=== PATIENT | female | born 1970 | race Caucasian/White ===

== ENCOUNTER → 2020-10-11 15:09 | Outpatient (BNVA) | payer OTHER, SELFPAY | PROVIDERS: PCP Nurse Practitioner Family; Referring Provider Dermatology; Visit Provider Podiatrist Foot & Ankle Surgery | DX: M79.671 Pain in right foot (principal) | CPT/HCPCS: 73630 ==

== ENCOUNTER 2022-11-03 06:56 | Outpatient (CLI) | payer OTHER, SELFPAY ==
--- NOTE | 2022-11-03 07:23 | US_ITS ---
WS: [id number] RIGHT UPPER QUADRANT ULTRASOUND HISTORY: EPIGASTRIC PAIN/RUQ ABDOMINAL PAIN COMPARISON: None available. Liver: 14.0 cm in length. Normal size liver. Hyperechoic mass towards the diaphragmatic surface of th e liver measures 1.3 x 1.4 x 1.4 cm. No increased vascularity. No additional masses. No bile duct dil atation. Portal Vein: Normal hepatopetal flow with monophasic waveform. Gallbladder: Cholelithiasis without acute cholecystitis. No wall thickening or bile duct dilatation. CBD: 0.3 cm Pancreas: Normal size and echogenicity. Right kidney: 9.9 cm in length. Normal size and echogenicity. No hydronephrosis or mass. Aorta and IVC: Unremarkable abdominal aorta and IVC. No ascites. US/US abdomen limited [id number] IMPRESSION: 1. Cholelithiasis without evidence for acute cholecystitis. 2. No bile duct dilatation. 3. Hyperechoic mass towards the RIGHT hepatic diaphragmatic surface. Most typi maria guadalupe for hemangioma. For confirmation CT abdomen with portal venous and three-mi nute delayed imaging can be obtained.
== END 2022-11-03 06:57 | disposition home or self-care (01) ==
PROVIDERS: PCP Nurse Practitioner Family; Visit Provider Nurse Practitioner Family
DX: R10.13 Epigastric pain (principal); R10.11 Right upper quadrant pain; K80.20 Calculus of gallbladder without cholecystitis without obstruction; R16.0 Hepatomegaly, not elsewhere classified
CPT/HCPCS: 76705

== ENCOUNTER 2022-11-14 08:09 | Outpatient (CLI) | payer OTHER, SELFPAY ==
--- NOTE | 2022-11-14 08:30 | CTR_ITS ---
PROCEDURE INFORMATION: Exam: CT Abdomen With Contrast Exam date and time: 11/14/2022 8:36 AM Age: 52 years old Clinical indication: Abnormal findings; Abnormal radiologic finding of the abdomen; Radiologic exam and body structure: US of gb showed liver mass TECHNIQUE: Imaging protocol: Computed tomography of the abdomen with contrast. Radiation optimization: All CT scans at this facility use at least one of these dose optimization techniques: automated exposure control; mA and/or kV adjustment per patient size (includes targeted exams where dose is matched to clinical indication); or iterative reconstruction. Contrast material: OMNI 350; Contrast volume: 100 ml; Contrast route: INTRAVENOUS (IV); REPORTING DATA: Count of CT and Cardiac NM exams in prior 12 months: This patient has received 0 known CTs and 0 known cardiac nuclear medicine studies in the 12 months prior to the current study. COMPARISON: US abdomen limited [id number] 11/03/2022 7:34 AM RADIATION DOSE METRICS: Total DLP (mGy-cm): 444.96 FINDINGS: Lungs: Lung bases are clear. Liver: There are tiny hypodense nodules in the superior left lobe of the liver measuring 4 mm on series 3, image 11 and 5 mm on series 3, image 15. There is an 11 x 9 mm hypodense nodule in posterosuperior right lobe of the liver on series 3, image 12 corresponding to the lesion identified on ultrasound of 11/03/2022. On the delayed phase images there is peripheral nodular enhancement of the lesion with ill-defined margins. Gallbladder and bile ducts: There is high attenuation material within the gallbladder lumen consistent with sludge. There is no intrahepatic or extrahepatic bile duct dilation. Pancreas: The pancreas is unremarkable. Spleen: The spleen is unremarkable. Adrenal glands: The adrenal glands are unremarkable. Kidneys and ureters: There is a simple cyst in the left kidney. There is no hydronephrosis or stones on the left. The right kidney and ureter are unremarkable. Stomach and bowel: Visible portions of the small bowel and colon are unremarkable. The stomach is decompressed, preventing meaningful evaluation of wall thickness. Intraperitoneal space: There is no free air or significant intraperitoneal free fluid. Vasculature: The aorta is unremarkable. There is no aneurysm. The portal, splenic and superior mesenteric veins are patent. Lymph nodes: No retroperitoneal or yuniel hepatis lymphadenopathy. No upper mesenteric lymphadenopathy. Bones/joints: There is mild degenerative disease in the lumbar spine. The visible portion of the pelvis and sacrum is intact. Soft tissues: The abdominal wall is intact. CT/CT abdomen w con* [id number] IMPRESSION: 1. 11 mm liver nodule in the right lobe corresponding to the echogenic lesion visible on ultrasound, consistent with hemangioma. 2. Additional tiny liver lesions are too small to characterize on this exam. In a low-risk patient, this is most likely to be benign and no further follow-up is recommended. In a high-risk patient, follow-up MRI in 3-6 months is recommended (or earlier if warranted by the patient's specific clinical circumstances). (Reference: Pretty) COMMENTS: Consistent with the [employer]'s Incidental Findings Committee white paper (J Am Trevin Radiol 2018): Any incidental renal lesion less than 1 cm or classified as too small to characterize, or any incidental cystic renal lesion characterized as simple-appearing, is likely benign. No follow-up imaging is recommended for these lesions per consensus recommendations based on imaging criteria. REFERENCES: Pretty BORRERO, et al. Management of Incidental Liver Lesions on CT: A White Paper of the ACR Incidental Findings Committee. J Am Trevin Radiol. 2017;14(11):0283-6689.
[2022-11-14] MEDS: iohexol 350 mg/mL 500 mL Btl (per mL) IV (08:47)
== END 2022-11-14 08:10 | disposition home or self-care (01) ==
PROVIDERS: PCP Nurse Practitioner Family; Visit Provider Nurse Practitioner Family
DX: K76.89 Other specified diseases of liver (principal)
CPT/HCPCS: 74160; Q9967